=== PATIENT | male | born 1965 | race Caucasian/White ===

== ENCOUNTER 2020-06-27 16:39 | Outpatient (CLI) | payer BC | END 2020-06-27 16:40 | disposition home or self-care (01) | LOC: COV 16:39 | PROVIDERS: ATTEND Family Medicine | DX: R05 Cough (principal); R09.89 Other specified symptoms and signs involving the circulatory and respiratory systems; Z20.828 Contact with and (suspected) exposure to other viral communicable diseases ==

== ENCOUNTER 2021-09-20 14:10 | Emergency (ER) | payer BC ==
--- NOTE | 2021-09-20 14:36 | ED Physician Documentation ---
PD HPI UPPER EXT INJURY - Stated complaint Stated Complaint: LT MIDDLE FINGER INJURY - Chief complaint Chief Complaint: Trauma Ext - History obtained from History obtained from: Patient - Additonal information Additional information: The patient comes to the emergency department chief complaint of left middle finger injury while playing ultimate Frisbee this morning. He states that the Frisbee hit the tip of his left middle finger and forcibly flexed it. He has noticed pain and swelling in the area and it hurts to move the DIP joint. Patient states that he did have a minor injury to that same finger a week or 2 ago, but that he did not have any major concerns about this. No other complaints at this time. No other injuries. Review of Systems Ten Systems: 10 systems reviewed and negative Constitutional: reports: Reviewed and negative Eyes: reports: Reviewed and negative Ears: reports: Reviewed and negative Nose: reports: Reviewed and negative Throat: reports: Reviewed and negative Cardiac: reports: Reviewed and negative Respiratory: reports: Reviewed and negative GI: reports: Reviewed and negative : reports: Reviewed and negative Skin: reports: Reviewed and negative Musculoskeletal: reports: Extremity pain, Joint pain, Extremity swelling, Joint swelling Neurologic: reports: Reviewed and negative Psychiatric: reports: Reviewed and negative Endocrine: reports: Reviewed and negative Immunocompromised: reports: Reviewed and negative PD PAST MEDICAL HISTORY - Present Medications Home Medications: Ambulatory Orders Medication Instructions Recorded Confirmed No Known Home Medications 09/20/21 09/20/21 - Allergies Allergies/Adverse Reactions: Allergies Allergy/AdvReac Type Severity Reaction Status Date / Time No Known Drug Allergies Allergy Verified 09/20/21 14:21 PD ED PE NORMAL - Vitals Vital signs reviewed: Yes - General General: Alert and oriented X 3, No acute distress, Well developed/nourished - HEENT HEENT: Atraumatic, PERRL, EOMI, Moist mucous membranes - Cardiac Cardiac: Strong equal pulses - Respiratory Respiratory: No respiratory distress - Derm Derm: Normal color, Warm and dry, No rash, Other (No contusion) - Extremities Extremities: No deformity, Other (Mild edema with minimal tenderness over dorsal aspect of left middle finger DIP joint. With straightening of the finger, mild flexion is noted at the DIP joint. 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, No motor deficit, No sensory deficit, Normal speech, Other (Grossly intact) - Psych Psych: Normal mood, Normal affect Results - Vitals Vitals: Vital Signs - 24 hr 09/20/21 09/20/21 14:17 15:49 Temperature 35.7 C L Heart Rate 92 88 Respiratory 16 16 Rate Blood Pressure 121/79 119/76 O2 Saturation 96 98 - Rads (name of study) Left middle finger x-ray series Radiology: Final report received, EMP read indepedently, See rad report (Avulsion fracture distal phalanx.) PD MEDICAL DECISION MAKING - ED course Complexity details: reviewed results, re-evaluated patient, considered differential, d/w patient ED course: X-ray showed an avulsion fracture with fragment sitting dorsal to DIP joint. This was most consistent with a rupture of the extensor tendon, which did fit clinically with the patient's exam findings. The patient has been placed in a finger splint. I have given the options for hand specialty follow-up to be sure that the avulsion fracture is healing appropriately, and to evaluate for any potential need for surgery. The patient is instructed to call make an appointment first thing tomorrow morning. We have discussed symptomatic management otherwise in the usual indications for return. Departure - Departure Disposition: 01 Home, Self Care Clinical Impression: Avulsion of tendon of finger Avulsion fracture of distal phalanx of finger Qualifiers: Encounter type: initial encounter Fracture type: closed Qualified Code(s): S62.639A - Displaced fracture of distal phalanx of unspecified finger, initial encounter for closed fracture Condition: Stable Instructions: ED Rupture Tendon Finger Follow-Up: Fortino Vidal MD [Physician No Access] - Tiburcio Agustin MD [Physician No Access] - Comments: The x-rays of your finger show that a piece of bone has been pulled off the distalmost bone of your finger, which indicates that the extensor tendon, which straightens the finger at that joint, is most likely completely or nearly completely disconnected. You have been placed in a splint today to try to get those pieces back together as close as possible. Sometimes this will allow the bone to heal back where it should. However, it is important that you follow-up as soon as possible with a hand specialist to be sure that you do not need a surgical repair for this. Discharge Date/Time: 09/20/21 15:51
--- NOTE | 2021-09-20 15:15 | XRAY Report ---
PROCEDURE: Finger(s) LT INDICATIONS: Trauma TECHNIQUE: AP hand, 2 views of the third finger(s) acquired. COMPARISON: None FINDINGS: Bones: On the lateral view, there is an acute appearing avulsion fracture fragment along the dorsal a spect of the distal interphalangeal joint of the third finger that measures 3-4 mm. No additional fra ctures can be seen. No suspicious bony lesions. Soft tissues: No suspicious soft tissue calcifications. IMPRESSION: 3 to 4 mm avulsion fracture fragment seen along the dorsal aspect of the distal interphalangeal joint of the third finger. Reviewed by: Edin Osorio MD on 09/20/2021 2:14 PM [facility] Approved by: Edin Osorio MD on 09/20/2021 2:14 PM [facility] Station ID: [id number]
[2021-09-20 15:51] VITALS: BP 119/76
== END 2021-09-20 15:51 | disposition home or self-care (01) ==
LOC: ED 14:10
DX: S62.633A Displaced fracture of distal phalanx of left middle finger, initial encounter for closed fracture (principal); S66.393A Other injury of extensor muscle, fascia and tendon of left middle finger at wrist and hand level, initial encounter; W20.8XXA Other cause of strike by thrown, projected or falling object, initial encounter; Y93.74 Activity, frisbee
CPT/HCPCS: 99283